=== PATIENT | male | born 1950 | race Caucasian/White ===

== ENCOUNTER 2017-01-05 08:09 | Outpatient (CLI) | payer MEDICARE, OTHER | END 2017-01-05 08:10 | disposition home or self-care (01) | DX: N40.1 Benign prostatic hyperplasia with lower urinary tract symptoms (principal); E78.5 Hyperlipidemia, unspecified; K21.9 Gastro-esophageal reflux disease without esophagitis; F41.9 Anxiety disorder, unspecified; M51.86 Other intervertebral disc disorders, lumbar region; Z12.5 Encounter for screening for malignant neoplasm of prostate | CPT/HCPCS: 36415; 80053; 80061; 85025; G0103 ==

== ENCOUNTER 2017-05-25 10:01 | Emergency (ER) | payer MEDICARE, OTHER ==
[2017-05-25 10:09] VITALS: BP 118/68
[2017-05-25] MEDS ORDERED: TETANUS/DIPHTHERIA/PERTUSSIS 0.5 ML SYRINGE IM ONE ×2 (10:33→10:39)
[2017-05-25] MEDS ORDERED: AMOX/CLAV 500 MG/125 MG TABLET PO STA (10:36)
[2017-05-25] MEDS ORDERED: BACITRACIN OINT TOP STA (10:52)
--- NOTE | 2017-05-25 10:55 | ED Physician Documentation ---
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 The dog bit his right middle finger. He is right-hand dominant. His last tetanus booster was 7 or 8 years ago. Review of Systems Constitutional: denies: Fever GI: denies: Vomiting Skin: reports: Bite / sting Musculoskeletal: reports: Extremity pain. denies: Extremity swelling Neurologic: denies: Focal weakness, Numbness PD PAST MEDICAL HISTORY - Past Medical History Past Medical History: Yes Cardiovascular: High cholesterol Respiratory: Sleep apnea, CPAP use, Other Neuro: None Endocrine/Autoimmune: None GI: None : Benign prostate hypertrophy HEENT: Other Psych: None Musculoskeletal: Osteoarthritis, Chronic back pain Derm: None - Past Surgical History Past Surgical History: Yes General: Cholecystectomy Ortho: ACL reconstruction - Present Medications Home Medications: Ambulatory Orders Medication Instructions Recorded Confirmed Aspirin [Aspir 81] 81 mg PO DAILY 05/05/13 05/25/17 Cyclobenzaprine [Flexeril] 10 mg PO TID PRN 05/05/13 05/25/17 Finasteride 5 mg PO DAILY 05/05/13 05/25/17 Simvastatin [Zocor] 20 mg PO QPM 05/05/13 05/25/17 Tamsulosin [Flomax] 0.4 mg PO ONCE 05/05/13 05/25/17 Zolpidem [Ambien] 10 mg PO HS 05/05/13 05/25/17 Celecoxib [CeleBREX] 200 mg PO DAILY 01/13/15 05/25/17 traMADol [Ultram] 60 mg PO TID 01/13/15 05/25/17 LORazepam [Ativan] 0.5 mg PO Q8H PRN #5 tablet 09/04/15 05/25/17 Amox/Clav 875/125 [Augmentin] 1 each PO Q12H #10 tablet 05/25/17 - Allergies Allergies/Adverse Reactions: Allergies Allergy/AdvReac Type Severity Reaction Status Date / Time tolmetin sodium * Allergy Severe Respiratory Verified 09/04/15 20:28 [From Tolectin] - Social History Does the pt smoke?: No Smoking Status: Never smoker Does the pt drink ETOH?: No Does the pt have substance abuse?: No - Immunizations Immunizations are current?: Yes - POLST Patient has POLST: Yes PD ED PE NORMAL - Vitals Vital signs reviewed: Yes (Normal) - General General: Alert and oriented X 3, Well developed/nourished - HEENT HEENT: Atraumatic - Respiratory Respiratory: No respiratory distress - Derm Derm: No rash - Extremities Extremities: Other (1 cm laceration on the volar aspect of the right middle finger just distal to the PIP joint. He has full flexion and extension of the DIP, PIP, and MCP joints, against resistance. Distal neurovascular is intact.) - Neuro Neuro: Alert and oriented X 3, No motor deficit, No sensory deficit Results - Vitals Vitals: Oxygen O2 Source Room air PD MEDICAL DECISION MAKING - ED course Complexity details: re-evaluated patient, considered differential, d/w patient, d/w PMD ED course: The patient's presentation is significant for dog bite to the right middle finger, just distal to the PIP joint on the volar aspect. Because of the risk of infection with dog bite, I did not suture the wound. I did anesthetize it and clean it thoroughly with normal saline. Antibiotic ointment and gauze dressing was applied. Augmentin 875 mg is administered orally, and tetanus booster was administered. The patient had recently been prescribed Bactrim for a sinus infection, and he had not yet filled the prescription. I contacted his primary provider to advise that I would be prescribing Augmentin, and advising the patient not to take Bactrim while taking Augmentin. He is being discharged with prescription for Augmentin for 5 days. I discussed with him the expected course of injury, antibiotic treatment and outpatient follow-up, as well as potentially worrisome signs or symptoms that should prompt reevaluation in the emergency department. Departure - Departure Disposition: 01 Home, Self Care Clinical Impression: Dog bite of finger Qualifiers: Encounter type: initial encounter Qualified Code(s): S61.259A - Open bite of unspecified finger without damage to nail, initial encounter Condition: Stable Instructions: ED Bite Dog Follow-Up: Akshat Cruz MD [Provider Admit Priv/Credential] - Prescriptions: Amox/Clav 875/125 [Augmentin] 1 each PO Q12H #10 tablet Comments: Take Augmentin twice daily as prescribed. Keep the wound clean, and apply antibiotic ointment daily. Follow up with your primary physician or return to the emergency department if you develop any sign of infection, or otherwise worsening symptoms. Discharge Date/Time: 05/25/17 11:04
[2017-05-25] MEDS ORDERED: BACITRACIN OINT TOP ONE (10:56)
== END 2017-05-25 11:04 | disposition home or self-care (01) ==
LOC: ED 10:01
DX: S61.252A Open bite of right middle finger without damage to nail, initial encounter (principal); W54.0XXA Bitten by dog, initial encounter; Y92.019 Unspecified place in single-family (private) house as the place of occurrence of the external cause; Z23 Encounter for immunization; E78.00 Pure hypercholesterolemia, unspecified; G47.30 Sleep apnea, unspecified; N40.0 Benign prostatic hyperplasia without lower urinary tract symptoms; M19.90 Unspecified osteoarthritis, unspecified site; Z79.82 Long term (current) use of aspirin
CPT/HCPCS: 90471; 90715; 99283; A9270

== ENCOUNTER 2017-11-01 07:47 | Outpatient (CLI) | payer MEDICARE, OTHER ==
[2017-11-01 13:22] LABS: ALBUMIN 4.1 g/dL (3.2-5.5); ALKALINE PHOSPHATASE 81 IU/L (42-121); ALT ALANINE AMINOTRANSFERASE 26 IU/L (10-60); AST ASPARTATE AMINOTRANSFERASE 28 IU/L (10-42); BILIRUBIN,DIRECT 0.1 mg/dL (0.1-0.5); BILIRUBIN,TOTAL 0.5 mg/dL (0.2-1.0); CHOL/HDL RATIO 3.7 (<5.0); CHOLESTEROL 146 mg/dL; CRP - C-REACTIVE PROTEIN 2.1 mg/dL (0-1.0); HDL CHOLESTEROL 39 mg/dL; LDL CHOLESTEROL,CALCULATED 90 mg/dL; LDL/HDL RATIO 2.3 (<3.6); VLDL CHOLESTEROL 17 mg/dL
== END 2017-11-01 07:48 | disposition home or self-care (01) ==
LOC: LAB.WCP 07:47
PROVIDERS: ATTEND Family Medicine
DX: E78.5 Hyperlipidemia, unspecified (principal); M79.1 Myalgia
CPT/HCPCS: 36415; 80061; 80076; 83721; 85651; 86140

== ENCOUNTER 2017-11-02 08:00 | Outpatient (CLI) | payer MEDICARE, OTHER | END 2017-11-02 08:01 | disposition home or self-care (01) | LOC: LAB.WCP 08:00 | PROVIDERS: ATTEND Family Medicine | DX: J20.8 Acute bronchitis due to other specified organisms (principal) | CPT/HCPCS: 87275; 87276 ==

== ENCOUNTER 2018-02-22 14:11 | Emergency (ER) | payer MEDICARE, OTHER ==
--- NOTE | 2018-02-22 16:05 | XRAY Report ---
Procedure Date: 02/22/2018 Accession Number: [id number] / [id number] Procedure: XR - Finger(s) RT CPT Code: FULL RESULT: EXAM: RIGHT SECOND DIGIT RADIOGRAPHY EXAM DATE: 02/22/2018 03:38 PM. CLINICAL HISTORY: Injury distal phalanx right index finger. COMPARISON: None. TECHNIQUE: 3 views. FINDINGS: Bones: No acute fractures or suspicious bone lesions. Joints: No subluxations. Soft Tissues: Unremarkable. IMPRESSION: No acute radiographic abnormalities. RADIA
--- NOTE | 2018-02-22 16:09 | ED Physician Documentation ---
PD HPI UPPER EXT INJURY - Stated complaint Stated Complaint: FINGER INJURY - Chief complaint Chief Complaint: General - History obtained from History obtained from: Patient - History of Present Illness Location: Right, Finger Type of injury: Crush Where injury occurred: Home Timing - onset: How many days ago (3) Worsened by: Moving, Palpating Associated symptoms: Swelling, Discolored Similar symptoms before: Has not had sx before - Additonal information Additional information: The patient is a 68-year-old right hand dominant male who crushed the tip of his right index finger between the tailgate and the box of his trailer 3 days ago. He presents now because of continued swelling, pain, and discoloration of his index finger. He denies any other injuries. Review of Systems Constitutional: denies: Fever Musculoskeletal: reports: Extremity pain (Right index finger.) Neurologic: denies: Focal weakness, Numbness PD PAST MEDICAL HISTORY - Past Medical History Past Medical History: Yes Cardiovascular: High cholesterol Respiratory: Sleep apnea, CPAP use, Other Endocrine/Autoimmune: None GI: None : Benign prostate hypertrophy HEENT: Other Psych: None Musculoskeletal: Osteoarthritis, Chronic back pain Derm: None - Past Surgical History Past Surgical History: Yes General: Cholecystectomy Ortho: ACL reconstruction - Present Medications Home Medications: Ambulatory Orders Medication Instructions Recorded Confirmed Aspirin [Aspir 81] 81 mg PO DAILY 05/05/13 05/25/17 Cyclobenzaprine [Flexeril] 10 mg PO TID PRN 05/05/13 05/25/17 Tamsulosin [Flomax] 0.4 mg PO ONCE 05/05/13 05/25/17 Zolpidem [Ambien] 10 mg PO HS 05/05/13 05/25/17 Celecoxib [CeleBREX] 200 mg PO DAILY 01/13/15 05/25/17 traMADol [Ultram] 60 mg PO TID 01/13/15 05/25/17 LORazepam [Ativan] 0.5 mg PO Q8H PRN #5 tablet 09/04/15 05/25/17 Atorvastatin [Lipitor] 02/22/18 - Allergies Allergies/Adverse Reactions: Allergies Allergy/AdvReac Type Severity Reaction Status Date / Time tolmetin sodium * Allergy Severe Respiratory Verified 02/22/18 14:33 [From Tolectin] - Social History Does the pt smoke?: No Smoking Status: Never smoker Does the pt drink ETOH?: No Does the pt have substance abuse?: No - Immunizations Immunizations are current?: Yes Immunizations: TDAP current <10years - POLST Patient has POLST: Yes PD ED PE NORMAL - Vitals Vital signs reviewed: Yes (Borderline systolic hypertension.) - General General: Alert and oriented X 3, Well developed/nourished - HEENT HEENT: Atraumatic - Respiratory Respiratory: No respiratory distress - Derm Derm: No rash - Extremities Extremities: Other (There is swelling of the distal phalanx of the right index finger, with some ungual hematoma. There is no break in the integument, and distal neurovascular is intact.) - Neuro Neuro: Alert and oriented X 3, No motor deficit, No sensory deficit Results - Vitals Vitals: Oxygen O2 Source Room air - Rads (name of study) Right index finger Radiology: Prelim report reviewed, EMP read contemporaneously, See rad report ( No acute radiographic abnormality.) Procedures - General procedure General procedure: Trephination of the fingernail on the right index finger, using hand-held cautery. PD MEDICAL DECISION MAKING - ED course Complexity details: reviewed results, considered differential, d/w patient ED course: The patient's presentation is consistent with crush injury to the right index finger, with subungual hematoma. There is no evidence of fracture on x-ray examination. Treatment in the emergency department included trephination of the fingernail, with subsequent drainage of the subungual hematoma. I discussed with him the expected course of injury, symptomatic treatment and outpatient follow-up, as well as potentially worrisome signs or symptoms that should prompt reevaluation in the emergency department. - Sepsis Event Vital Signs: Oxygen O2 Source Room air Departure - Departure Disposition: 01 Home, Self Care Clinical Impression: Crush injury to finger Qualifiers: Encounter type: initial encounter Qualified Code(s): S67.10XA - Crushing injury of unspecified finger(s), initial encounter Subungual hematoma of finger of right hand Qualifiers: Encounter type: initial encounter Qualified Code(s): S60.10XA - Contusion of unspecified finger with damage to nail, initial encounter Condition: Stable Instructions: ED Hematoma Subungual Follow-Up: Akshat Cruz MD [Provider Admit Priv/Credential] - Comments: Keep your right hand elevated as much of the time as possible. You can use ibuprofen, up to 800 mg 3 times daily if needed for pain or discomfort. Follow up with your primary physician, or return to the emergency department if you develop increasing pain or swelling, or otherwise worsening times. Discharge Date/Time: 02/22/18 16:20
[2018-02-22 16:22] VITALS: BP 130/81
== END 2018-02-22 16:20 | disposition home or self-care (01) ==
LOC: ED 14:11
DX: S67.190A Crushing injury of right index finger, initial encounter (principal); S60.121A Contusion of right index finger with damage to nail, initial encounter; W23.0XXA Caught, crushed, jammed, or pinched between moving objects, initial encounter; Y92.007 Garden or yard of unspecified non-institutional (private) residence as the place of occurrence of the external cause; E78.00 Pure hypercholesterolemia, unspecified; G47.30 Sleep apnea, unspecified; N40.0 Benign prostatic hyperplasia without lower urinary tract symptoms; M19.90 Unspecified osteoarthritis, unspecified site; Z79.82 Long term (current) use of aspirin
CPT/HCPCS: 11740; 73140; 99283

== ENCOUNTER 2018-05-29 07:40 | Outpatient (CLI) | payer MEDICARE, OTHER ==
[2018-05-29 14:55] LABS: ALBUMIN 4.1 g/dL (3.2-5.5); ALBUMIN/GLOBULIN RATIO 1.5 (1.0-2.2); ALKALINE PHOSPHATASE 92 IU/L (42-121); ALT ALANINE AMINOTRANSFERASE 22 IU/L (10-60); AST ASPARTATE AMINOTRANSFERASE 23 IU/L (10-42); BILIRUBIN,TOTAL 0.4 mg/dL (0.2-1.0); BUN - BLOOD UREA NITROGEN 23 mg/dL (6-20); CALCIUM 8.8 mg/dL (8.5-10.3); CARBON DIOXIDE - CO2 30 mmol/L (21-32); CHLORIDE 100 mmol/L (101-111); CHOL/HDL RATIO 3.8 (<5.0); CHOLESTEROL 145 mg/dL; CREATININE 0.9 mg/dL (0.6-1.2); GFR - MDRD 83 (>89); GLUCOSE 105 mg/dL (70-100); HDL CHOLESTEROL 38 mg/dL; LDL CHOLESTEROL,CALCULATED 79 mg/dL; LDL/HDL RATIO 2.1 (<3.6); SODIUM 137 mmol/L (135-145); TOTAL PROTEIN 6.8 g/dL (6.7-8.2); VLDL CHOLESTEROL 28 mg/dL
== END 2018-05-29 07:41 | disposition home or self-care (01) ==
LOC: LAB.WCP 07:40
PROVIDERS: ATTEND Family Medicine
DX: E78.5 Hyperlipidemia, unspecified (principal); Z12.5 Encounter for screening for malignant neoplasm of prostate; R10.11 Right upper quadrant pain
CPT/HCPCS: 36415; 80053; 80061; G0103; 83721; 84153

== ENCOUNTER 2019-02-17 12:50 | Emergency (ER) | payer MEDICARE, OTHER ==
--- NOTE | 2019-02-17 14:15 | ED Physician Documentation ---
PD HPI SKIN - Stated complaint Stated Complaint: LUMP ON BACK - Chief complaint Chief Complaint: Wound - History obtained from History obtained from: Patient - History of Present Illness Timing - onset: How many days ago (he has had cyst on back for awhile, and has referral to Surgery to have it excised, but has gotten swollen, red, tender, with some small blisters on surface over the past several days abruptly.) Timing - duration: Days Timing - details: Abrupt onset, Still present Location: Back (lower to right of midline) Quality / character: Painful, Discolored, Vesicular, Swelling Review of Systems Constitutional: denies: Fever, Chills, Myalgias GI: denies: Nausea, Vomiting Skin: reports: Lesions Neurologic: denies: Focal weakness, Numbness PD PAST MEDICAL HISTORY - Past Medical History Cardiovascular: High cholesterol Respiratory: Sleep apnea, CPAP use, Other Endocrine/Autoimmune: None GI: None : Benign prostate hypertrophy HEENT: Other Psych: None Musculoskeletal: Osteoarthritis, Chronic back pain Derm: None - Past Surgical History Past Surgical History: Yes General: Cholecystectomy Ortho: ACL reconstruction - Present Medications Home Medications: Ambulatory Orders Medication Instructions Recorded Confirmed Aspirin [Aspir 81] 81 mg PO DAILY 05/05/13 05/25/17 Cyclobenzaprine [Flexeril] 10 mg PO TID PRN 05/05/13 05/25/17 Tamsulosin [Flomax] 0.4 mg PO ONCE 05/05/13 05/25/17 Zolpidem [Ambien] 10 mg PO HS 05/05/13 05/25/17 Celecoxib [CeleBREX] 200 mg PO DAILY 01/13/15 05/25/17 traMADol [Ultram] 60 mg PO TID 01/13/15 05/25/17 LORazepam [Ativan] 0.5 mg PO Q8H PRN #5 tablet 09/04/15 05/25/17 Atorvastatin [Lipitor] 02/22/18 Doxycycline Hyclate 100 mg PO BID #14 capsule 02/17/19 - Allergies Allergies/Adverse Reactions: Allergies Allergy/AdvReac Type Severity Reaction Status Date / Time tolmetin sodium * Allergy Severe Respiratory Verified 02/17/19 12:56 [From Tolectin] - Social History Does the pt smoke?: No Smoking Status: Never smoker Does the pt drink ETOH?: No Does the pt have substance abuse?: No - Immunizations Immunizations are current?: Yes Immunizations: TDAP current <10years - POLST Patient has POLST: Yes PD ED PE NORMAL - Vitals Vital signs reviewed: Yes - General General: Alert and oriented X 3, No acute distress, Well developed/nourished - Back Back: No spinal TTP, Other (cyst right of midline in upper lumbar area. It is freely moveable from underlying muscle. U/S shows it is in the subcut layer and does not appear to extend deeper. Rounded red tender lump with some fluctuance, and superficial erosion/bistering c/w infected abscess. ) - Derm Derm: Normal color, Warm and dry Results - Vitals Vitals: Oxygen O2 Source Room air Procedures - Abscess I&D (location) lower back skin Preparation: Confirmed with ultrasound, Chlorhexadine, Lidocaine 1%, With epi Incision: Incised with scalpel, Purulent drainage, Irrigated. No: Packed, Culture obtained Other: Pt tolerated well, Dressing applied, Antibiotic prescribed PD MEDICAL DECISION MAKING - ED course Complexity details: considered differential, d/w patient Departure - Departure Disposition: 01 Home, Self Care Clinical Impression: Infected sebaceous cyst of skin Condition: Stable Record reviewed to determine appropriate education?: Yes Instructions: ED Abscess IandD Follow-Up: Akshat Cruz MD [Primary Care Provider] - Emanuel Nolen MD [Provider Admit Priv/Credential] - Prescriptions: Doxycycline Hyclate 100 mg PO BID #14 capsule Comments: Warm moist towels to the area periodically or even bath soaks are good to help promote further drainage from the infected cyst. Doxycycline antibiotic as directed. Use Tylenol ibuprofen or naproxen as needed for pains. Follow-up with Dr. Jones as planned in early September for more definitive removal of the underlying cyst. The current treatments will reduce the infection part and the cyst can get excised later when the infection is cleared. Discharge Date/Time: 02/17/19 15:19
[2019-02-17] MEDS ORDERED: IBUPROFEN 600 MG TABLET PO STA (15:02)
[2019-02-17] MEDS ORDERED: DOXYCYCLINE 100 MG TABLET PO STA (15:02)
[2019-02-17 15:18] VITALS: BP 149/82
== END 2019-02-17 15:19 | disposition home or self-care (01) ==
LOC: ED 12:50
DX: L72.3 Sebaceous cyst (principal); L02.212 Cutaneous abscess of back [any part, except buttock and flank]; Z79.82 Long term (current) use of aspirin
CPT/HCPCS: 10060; 99283; A9270

== ENCOUNTER 2019-02-27 17:53 | Emergency (ER) | payer MEDICARE, OTHER ==
[2019-02-27 18:00] VITALS: BP 142/97
[2019-02-27] MEDS ORDERED: predniSONE 20 MG TABLET PO STA (18:17)
--- NOTE | 2019-02-27 18:23 | ED Physician Documentation ---
History of Present Illness - Stated complaint Stated Complaint: RT LEG RED/BURN/SWELL - Chief complaint Chief Complaint: Ext Problem - History obtained from History obtained from: Patient - History of Present Illness Timing: How many weeks ago (1) Pain level max: 4 Pain level now: 3 - Additonal information Additional information: Right lower extremity redness and stinging for the past week. Located on the anterior aspect of the jarvis. No distal swelling. States it occurred while he was walking a horse. Nothing makes it better. Worse with palpation. No fevers. Review of Systems Constitutional: denies: Fever, Chills Musculoskeletal: denies: Neck pain, Back pain Neurologic: denies: Headache PD PAST MEDICAL HISTORY - Past Medical History Cardiovascular: High cholesterol Respiratory: Sleep apnea, CPAP use, Other Endocrine/Autoimmune: None GI: None : Benign prostate hypertrophy HEENT: Other Psych: None Musculoskeletal: Osteoarthritis, Chronic back pain Derm: None - Past Surgical History Past Surgical History: Yes General: Cholecystectomy Ortho: ACL reconstruction - Present Medications Home Medications: Ambulatory Orders Medication Instructions Recorded Confirmed Aspirin [Aspir 81] 81 mg PO DAILY 05/05/13 05/25/17 Cyclobenzaprine [Flexeril] 10 mg PO TID PRN 05/05/13 05/25/17 Tamsulosin [Flomax] 0.4 mg PO ONCE 05/05/13 05/25/17 Zolpidem [Ambien] 10 mg PO HS 05/05/13 05/25/17 Celecoxib [CeleBREX] 200 mg PO DAILY 01/13/15 05/25/17 traMADol [Ultram] 60 mg PO TID 01/13/15 05/25/17 LORazepam [Ativan] 0.5 mg PO Q8H PRN #5 tablet 09/04/15 05/25/17 Atorvastatin [Lipitor] 02/22/18 Doxycycline Hyclate 100 mg PO BID #14 capsule 02/17/19 Cephalexin [Keflex] 500 mg PO Q6H #28 capsule 02/27/19 predniSONE [Prednisone] 40 mg PO DAILY #10 tablet 02/27/19 - Allergies Allergies/Adverse Reactions: Allergies Allergy/AdvReac Type Severity Reaction Status Date / Time tolmetin sodium * Allergy Severe Respiratory Verified 02/27/19 18:00 [From Tolectin] - Social History Does the pt smoke?: No Smoking Status: Never smoker Does the pt drink ETOH?: No Does the pt have substance abuse?: No - Immunizations Immunizations are current?: Yes Immunizations: TDAP current <10years - POLST Patient has POLST: Yes PD ED PE NORMAL - Vitals Vital signs reviewed: Yes - General General: Alert and oriented X 3, No acute distress - HEENT HEENT: Moist mucous membranes - Neck Neck: Supple, no meningeal sign - Extremities Extremities: Other (R anterior jarvis - mild erythema. no induration. no fluctance) - Neuro Neuro: Alert and oriented X 3 - Psych Psych: Normal mood, Normal affect Results - Vitals Vitals: Vital Signs - 24 hr 02/27/19 17:57 Temperature 36.8 C Heart Rate 74 Respiratory 17 Rate Blood Pressure 142/97 H O2 Saturation 96 Oxygen O2 Source Room air PD MEDICAL DECISION MAKING - ED course Complexity details: considered differential, d/w patient ED course: 69-year-old male with cellulitis versus allergic reaction to the anterior right jarvis. Will place on steroids and antibiotics. He is well-appearing, nontoxic. Afebrile. No evidence of DVT. No evidence of abscess. No evidence of fracture. Patient counseled regarding signs and symptoms for which I believe and urgent re-evaluation would be necessary. Patient with good understanding of and agreement to plan and is comfortable going home at this time This document was made in part using voice recognition software. While efforts are made to proofread this document, sound alike and grammatical errors may occur. Departure - Departure Disposition: 01 Home, Self Care Clinical Impression: Allergic reaction Qualifiers: Encounter type: initial encounter Qualified Code(s): T78.40XA - Allergy, unspecified, initial encounter Cellulitis Qualifiers: Site of cellulitis: extremity Site of cellulitis of extremity: lower extremity Laterality: right Qualified Code(s): L03.115 - Cellulitis of right lower limb Condition: Good Instructions: ED Allergic Reaction Local Other, ED Infec Skin Cellulitis Follow-Up: Akshat Cruz MD [Primary Care Provider] - Within 1 week Prescriptions: Cephalexin [Keflex] 500 mg PO Q6H #28 capsule predniSONE [Prednisone] 40 mg PO DAILY #10 tablet Comments: Return if you worsen. Start the antibiotics tomorrow if you are not improved. This document was made in part using voice recognition software. While efforts are made to proofread this document, sound alike and grammatical errors may occur. Discharge Date/Time: 02/27/19 18:40
== END 2019-02-27 18:40 | disposition home or self-care (01) ==
LOC: ED 17:53
DX: T78.40XA Allergy, unspecified, initial encounter (principal); L03.115 Cellulitis of right lower limb
CPT/HCPCS: 99283; J7512

== ENCOUNTER 2019-03-04 13:00 | Outpatient (CLI) | payer MEDICARE, OTHER | END 2019-03-04 23:59 | disposition home or self-care (01) | LOC: LAB.R 13:00 | PROVIDERS: ATTEND Surgery | DX: R22.2 Localized swelling, mass and lump, trunk (principal) | CPT/HCPCS: 87070; 87205 ==

== ENCOUNTER 2019-08-22 08:00 | Outpatient (CLI) | payer MEDICARE, OTHER ==
[2019-08-22 18:49] LABS: BASOPHILS % (AUTO) 0.5 %; EOSINOPHILS # (AUTO) 0.2 10^3/uL (0.0-0.7); EOSINOPHILS % (AUTO) 2.5 %; HGB - HEMOGLOBIN 15.2 g/dL (14.0-18.0); LYMPHOCYTES # (AUTO) 1.3 10^3/uL (1.5-3.5); LYMPHOCYTES % (AUTO) 15.9 %; MEAN CORPUSCULAR HEMOGLOBIN 30.1 pg (27.0-31.0); MEAN CORPUSCULAR HGB CONC 32.9 g/dL (32.0-36.0); MEAN CORPUSCULAR VOLUME 91.5 fL (80.0-94.0); MEAN PLATELET VOLUME 9.8 fL (7.4-11.4); MONOCYTES # (AUTO) 0.7 10^3/uL (0.0-1.0); MONOCYTES % (AUTO) 8.3 %; NEUTROPHILS # (AUTO) 5.8 10^3/uL (1.5-6.6); NEUTROPHILS % (AUTO) 72.3 %; PLT - PLATELET COUNT 218 10^3/uL (130-450); RED BLOOD COUNT 5.05 10^6/uL (4.70-6.10)
[2019-08-22 19:20] LABS: ALBUMIN/GLOBULIN RATIO 1.4 (1.0-2.2); BILIRUBIN,TOTAL 0.4 mg/dL (0.2-1.0); CALCIUM 8.8 mg/dL (8.5-10.3); CREATININE 0.9 mg/dL (0.6-1.2); TOTAL PROTEIN 6.9 g/dL (6.7-8.2)
== END 2019-08-22 23:59 | disposition home or self-care (01) ==
LOC: LAB.WCP 08:00
PROVIDERS: ATTEND Family Medicine
DX: R10.9 Unspecified abdominal pain (principal)
CPT/HCPCS: 36415; 80053; 82150; 83690; 85025

== ENCOUNTER 2019-08-24 08:39 | Outpatient (CLI) | payer MEDICARE, OTHER ==
[2019-08-24] MEDS ORDERED: IOVERSOL 320 50 ML VIAL ONE (08:44)
[2019-08-24] MEDS ORDERED: IOVERSOL 320 100 ML VIAL IVP ONE ×2 (08:44→10:17)
[2019-08-24] MEDS ORDERED: IOVERSOL 320 50 ML VIAL PO ONE (10:17)
--- NOTE | 2019-08-26 01:20 | CT Report ---
Reason: ABD PAIN Procedure Date: 08/24/2019 Accession Number: [id number] / [id number] Procedure: CT - Abdomen/Pelvis W CPT Code: Final Report FULL RESULT: EXAM: CT ABDOMEN AND PELVIS EXAM DATE: 08/24/2019 10:14 AM. CLINICAL HISTORY: Abdominal pain. COMPARISONS: None. TECHNIQUE: Routine helical CT imaging was performed through the abdomen and pelvis. IV contrast: OPTI 320 100 mL. Enteric contrast: Present. Reconstructions: Coronal and sagittal. In accordance with CT protocol optimization, one or more of the following dose reduction techniques were utilized for this exam: automated exposure control, adjustment of mA and/or KV based on patient size, or use of iterative reconstructive technique. FINDINGS: ABDOMEN: Liver: Multiple small low-density lesions within the liver, difficult to fully characterize. Some of the larger lesions are likely cysts. Stomach/Distal Esophagus: No significant abnormality. Gallbladder: No significant abnormality. Bile Ducts: No significant abnormality. Pancreas: No significant abnormality. Spleen: No significant abnormality. Kidneys: There is a tiny cyst within the right mid to upper kidney. No suspicious solid appearing lesion. No hydronephrosis. Nonspecific trace amount of perinephric fluid bilaterally, probably senescent change. Adrenals: No significant abnormality. Bowel: No obstruction. Moderate fecal residual. Appendix: Normal. Lymph Nodes: No pathologically enlarged nodes. Vasculature: Normal caliber aorta. Fluid: No significant free fluid. Abdominal Wall: No significant abnormality. Other: No significant abnormality. PELVIS: Streak artifact from the pelvic hardware obscures detailed assessment of the pelvis. Prostate and Seminal Vesicles: No significant abnormality. Bladder: No significant abnormality. Lymph Nodes: No pathologically enlarged nodes. Fluid: No significant free fluid. Other: There is a small fat-containing left inguinal hernia noted. BONES: Prior pelvic ring disruption with fixation of the SI joints bilaterally with a long cannulated screw. There is also side plate and screw fixation of the symphysis pubis. Streak artifact resulting from these prostheses as well as the left hip prosthesis obscure detailed assessment of the pelvis. Multilevel degenerative change within the spine. No definite suspicious bone lesions demonstrated. LOWER CHEST: No significant consolidation or effusion. IMPRESSION: No acute abdominal or pelvic abnormality. Moderate amount of retained colonic fecal matter, may represent constipation in the appropriate setting. RADIA
== END 2019-08-24 08:40 | disposition home or self-care (01) ==
LOC: DI 08:39
PROVIDERS: ATTEND Family Medicine
DX: R10.9 Unspecified abdominal pain (principal)
CPT/HCPCS: 74177; Q9967

== ENCOUNTER 2019-08-29 08:16 | Outpatient (CLI) | payer MEDICARE, OTHER ==
[2019-08-29 12:03] LABS: BASOPHILS # (AUTO) 0.1 10^3/uL (0.0-0.1); BASOPHILS % (AUTO) 0.8 %; EOSINOPHILS # (AUTO) 0.2 10^3/uL (0.0-0.7); EOSINOPHILS % (AUTO) 3.7 %; HGB - HEMOGLOBIN 16.3 g/dL (14.0-18.0); LYMPHOCYTES # (AUTO) 1.2 10^3/uL (1.5-3.5); MEAN CORPUSCULAR HEMOGLOBIN 29.9 pg (27.0-31.0); MEAN CORPUSCULAR HGB CONC 33.2 g/dL (32.0-36.0); MEAN CORPUSCULAR VOLUME 89.9 fL (80.0-94.0); MEAN PLATELET VOLUME 9.7 fL (7.4-11.4); MONOCYTES # (AUTO) 0.7 10^3/uL (0.0-1.0); MONOCYTES % (AUTO) 11.5 %; NEUTROPHILS # (AUTO) 3.8 10^3/uL (1.5-6.6); NEUTROPHILS % (AUTO) 63.7 %; PLT - PLATELET COUNT 218 10^3/uL (130-450); RED BLOOD COUNT 5.46 10^6/uL (4.70-6.10); RED CELL DISTRIBUTION WIDTH 11.9 % (12.0-15.0)
[2019-08-29 12:19] LABS: ALBUMIN 4.2 g/dL (3.2-5.5); ALBUMIN/GLOBULIN RATIO 1.3 (1.0-2.2); ALKALINE PHOSPHATASE 101 IU/L (42-121); ALT ALANINE AMINOTRANSFERASE 22 IU/L (10-60); AST ASPARTATE AMINOTRANSFERASE 21 IU/L (10-42); BILIRUBIN,TOTAL 0.7 mg/dL (0.2-1.0); BUN - BLOOD UREA NITROGEN 22 mg/dL (6-20); CARBON DIOXIDE - CO2 30 mmol/L (21-32); CHLORIDE 100 mmol/L (101-111); CHOL/HDL RATIO 3.3 (<5.0); CHOLESTEROL 197 mg/dL; CREATININE 0.9 mg/dL (0.6-1.2); GFR - MDRD 83 (>89); GLUCOSE 96 mg/dL (70-100); HDL CHOLESTEROL 59 mg/dL; LDL CHOLESTEROL,CALCULATED 115 mg/dL; LDL/HDL RATIO 1.9 (<3.6); SODIUM 140 mmol/L (135-145); TOTAL PROTEIN 7.4 g/dL (6.7-8.2); VLDL CHOLESTEROL 23 mg/dL
== END 2019-08-29 23:59 | disposition home or self-care (01) ==
LOC: LAB.WCP 08:16
PROVIDERS: ATTEND Family Medicine
DX: J44.9 Chronic obstructive pulmonary disease, unspecified (principal); M79.7 Fibromyalgia; E78.5 Hyperlipidemia, unspecified; K21.9 Gastro-esophageal reflux disease without esophagitis; Z12.5 Encounter for screening for malignant neoplasm of prostate
CPT/HCPCS: 36415; 80053; 80061; 84443; 85025; G0103; 83721; 84153

== ENCOUNTER 2021-05-05 11:22 | Outpatient (CLI) | payer MEDICARE, OTHER ==
--- NOTE | 2021-05-05 17:06 | XRAY Report ---
PROCEDURE: Ribs w/PA Chest RT INDICATIONS: PATIENT INJURED R RIBS IN FALL FROM HORSE TECHNIQUE: 3 views of the right ribs were acquired, along with a single view chest. COMPARISON: Prior chest plain films reviewed. FINDINGS: Surgical changes and devices: None. Bones and chest wall: There is at least one right-sided acute mid chest rib fracture, only slightly d isplaced. Mild underlying pleural thickening is associated. A pneumothorax is not seen. No dislocatio ns. No suspicious bony lesions. Overlying soft tissues appear unremarkable. Lungs and pleura: No pleural effusions or pneumothorax. Lungs appear clear. Mediastinum: Mediastinal contours appear normal. Heart size is normal. IMPRESSION: Reduced inspiratory volume, no pneumothorax. Definite acute single visualized right mid chest rib fra cture, with underlying mild pleural thickening as a result focally. Reviewed by: Heladio Vazquez MD on 05/05/2021 5:04 PM PDT Approved by: Heladio Vazquez MD on 05/05/2021 5:04 PM PDT Station ID: [id number]
--- NOTE | 2021-05-05 17:20 | XRAY Report ---
PROCEDURE: Shoulder 2 View RT INDICATIONS: PATIENT INJURED IN FALL FROM HORSE TECHNIQUE: 2 views of the shoulder were acquired. COMPARISON: None. FINDINGS: Bones: No fractures or dislocations. No suspicious bony lesions. Visualized ribs appear intact. M ild acromioclavicular and glenohumeral joint space narrowing with periarticular osteophyte formation. Soft tissues: No suspicious soft tissue calcifications. IMPRESSION: Mild acromioclavicular and glenohumeral joint degeneration. Reviewed by: TRACI High on 05/05/2021 5:19 PM PDT Approved by: Vincent Ferrer MD on 05/05/2021 5:19 PM PDT Station ID: [id number]
== END 2021-05-05 23:59 | disposition home or self-care (01) ==
LOC: DI.N 11:22
PROVIDERS: ATTEND Nurse Practitioner
DX: S22.31XA Fracture of one rib, right side, initial encounter for closed fracture (principal); M19.011 Primary osteoarthritis, right shoulder

== ENCOUNTER 2021-07-22 08:00 | Outpatient (CLI) | payer MEDICARE, OTHER ==
[2021-07-22 12:31] LABS: BASOPHILS % (AUTO) 0.6 %; EOSINOPHILS # (AUTO) 0.3 10^3/uL (0.0-0.7); EOSINOPHILS % (AUTO) 4.8 %; HCT - HEMATOCRIT 46.8 % (42.0-52.0); HGB - HEMOGLOBIN 15.5 g/dL (14.0-18.0); LYMPHOCYTES # (AUTO) 1.3 10^3/uL (1.5-3.5); LYMPHOCYTES % (AUTO) 24.1 %; MEAN CORPUSCULAR HGB CONC 33.1 g/dL (32.0-36.0); MEAN CORPUSCULAR VOLUME 90.5 fL (80.0-94.0); MEAN PLATELET VOLUME 9.3 fL (7.4-11.4); MONOCYTES # (AUTO) 0.6 10^3/uL (0.0-1.0); MONOCYTES % (AUTO) 11.1 %; NEUTROPHILS # (AUTO) 3.2 10^3/uL (1.5-6.6); NEUTROPHILS % (AUTO) 59.2 %; PLT - PLATELET COUNT 217 10^3/uL (130-450); RED BLOOD COUNT 5.17 10^6/uL (4.70-6.10); RED CELL DISTRIBUTION WIDTH 11.9 % (12.0-15.0); WHITE BLOOD COUNT 5.4 x10^3/uL (4.8-10.8)
[2021-07-22 12:49] LABS: ALBUMIN 4.4 g/dL (3.2-5.5); ALBUMIN/GLOBULIN RATIO 1.6 (1.0-2.2); ALKALINE PHOSPHATASE 96 IU/L (42-121); ALT ALANINE AMINOTRANSFERASE 22 IU/L (10-60); AST ASPARTATE AMINOTRANSFERASE 23 IU/L (10-42); BILIRUBIN,TOTAL 0.9 mg/dL (0.2-1.0); BUN - BLOOD UREA NITROGEN 18 mg/dL (6-20); CALCIUM 8.8 mg/dL (8.5-10.3); CARBON DIOXIDE - CO2 32 mmol/L (21-32); CHLORIDE 97 mmol/L (101-111); CHOL/HDL RATIO 3.8 (<5.0); CHOLESTEROL 180 mg/dL; CREATININE 0.9 mg/dL (0.6-1.2); GFR - MDRD 83 (>89); GLUCOSE 106 mg/dL (70-100); HDL CHOLESTEROL 47 mg/dL; LDL CHOLESTEROL,CALCULATED 106 mg/dL; LDL/HDL RATIO 2.3 (<3.6); POTASSIUM 4.2 mmol/L (3.5-5.0); SODIUM 135 mmol/L (135-145); TOTAL PROTEIN 7.1 g/dL (6.7-8.2); TRIGLYCERIDES 136 mg/dL; VLDL CHOLESTEROL 27 mg/dL
== END 2021-07-22 23:59 | disposition home or self-care (01) ==
LOC: LAB.WCP 08:00
PROVIDERS: ATTEND Family Medicine
DX: E78.5 Hyperlipidemia, unspecified (principal); Z12.5 Encounter for screening for malignant neoplasm of prostate; K21.9 Gastro-esophageal reflux disease without esophagitis
CPT/HCPCS: 36415; 80053; 80061; 85025; G0103; 83721; 84153

== ENCOUNTER 2021-10-27 08:00 | Outpatient (CLI) | payer MEDICARE, OTHER ==
--- NOTE | 2021-10-27 14:18 | XRAY Report ---
PROCEDURE: Chest 2 View X-Ray INDICATIONS: R SIDED CHEST PX TECHNIQUE: 2 view(s) of the chest. COMPARISON: 05/05/2021 chest x-ray FINDINGS: Surgical changes and devices: None. Lungs and pleura: No pleural effusions or pneumothorax. Lungs are clear. Mediastinum: Mediastinal contours are normal. Heart size is normal. Bones and chest wall: No suspicious bony abnormalities. Soft tissues appear unremarkable. IMPRESSION: No acute process. Reviewed by: Dana Magana MD on 10/27/2021 2:17 PM PST Approved by: Dana Magana MD on 10/27/2021 2:17 PM PST Station ID: [id number]
== END 2021-10-27 23:59 | disposition home or self-care (01) ==
LOC: DI.N 08:00
PROVIDERS: ATTEND Family Medicine
DX: R07.89 Other chest pain (principal)

== ENCOUNTER 2022-01-03 07:47 | Outpatient (CLI) | payer MEDICARE, OTHER ==
[2022-01-03 13:11] LABS: ALBUMIN 4.1 g/dL (3.2-5.5); ALBUMIN/GLOBULIN RATIO 1.4 (1.0-2.2); ALKALINE PHOSPHATASE 78 IU/L (42-121); ALT ALANINE AMINOTRANSFERASE 20 IU/L (10-60); AST ASPARTATE AMINOTRANSFERASE 23 IU/L (10-42); BILIRUBIN,TOTAL 0.6 mg/dL (0.2-1.0); BUN - BLOOD UREA NITROGEN 16 mg/dL (6-20); CARBON DIOXIDE - CO2 30 mmol/L (21-32); CHLORIDE 101 mmol/L (101-111); CHOL/HDL RATIO 3.9 (<5.0); CHOLESTEROL 173 mg/dL; CREATININE 0.9 mg/dL (0.6-1.2); GFR - MDRD 83 (>89); GLUCOSE 100 mg/dL (70-100); HDL CHOLESTEROL 44 mg/dL; LDL CHOLESTEROL,CALCULATED 89 mg/dL; POTASSIUM 4.2 mmol/L (3.5-5.0); SODIUM 140 mmol/L (135-145); TOTAL PROTEIN 7.1 g/dL (6.7-8.2); TRIGLYCERIDES 198 mg/dL; VLDL CHOLESTEROL 40 mg/dL
[2022-01-03 13:34] LABS: ESTIMATED AVERAGE GLUCOSE 120 mg/dL (70-100); HEMOGLOBIN A1c% 5.8 % (4.27-6.07)
== END 2022-01-03 07:48 | disposition home or self-care (01) ==
LOC: LAB.N 07:47
PROVIDERS: ATTEND Family Medicine
DX: E78.5 Hyperlipidemia, unspecified (principal); R73.01 Impaired fasting glucose
CPT/HCPCS: 36415; 80053; 80061; 83036; 83721

== ENCOUNTER 2022-05-25 09:21 | Outpatient (CLI) | payer MEDICARE, OTHER ==
[2022-05-25 12:27] LABS: BASOPHILS # (AUTO) 0.1 10^3/uL (0.0-0.1); BASOPHILS % (AUTO) 1.1 %; EOSINOPHILS # (AUTO) 0.2 10^3/uL (0.0-0.7); EOSINOPHILS % (AUTO) 4.3 %; HCT - HEMATOCRIT 46.3 % (42.0-52.0); HGB - HEMOGLOBIN 15.7 g/dL (14.0-18.0); LYMPHOCYTES # (AUTO) 1.1 10^3/uL (1.5-3.5); LYMPHOCYTES % (AUTO) 23.7 %; MEAN CORPUSCULAR HEMOGLOBIN 30.4 pg (27.0-31.0); MEAN CORPUSCULAR HGB CONC 33.9 g/dL (32.0-36.0); MEAN CORPUSCULAR VOLUME 89.6 fL (80.0-94.0); MONOCYTES # (AUTO) 0.6 10^3/uL (0.0-1.0); NEUTROPHILS # (AUTO) 2.6 10^3/uL (1.5-6.6); NEUTROPHILS % (AUTO) 57.5 %; PLT - PLATELET COUNT 202 10^3/uL (130-450); RED BLOOD COUNT 5.17 10^6/uL (4.70-6.10); RED CELL DISTRIBUTION WIDTH 12.1 % (12.0-15.0); WHITE BLOOD COUNT 4.6 x10^3/uL (4.8-10.8)
[2022-05-25 13:09] LABS: ALBUMIN 4.4 g/dL (3.2-5.5); ALBUMIN/GLOBULIN RATIO 1.5 (1.0-2.2); ALKALINE PHOSPHATASE 72 IU/L (42-121); ALT ALANINE AMINOTRANSFERASE 23 IU/L (10-60); AST ASPARTATE AMINOTRANSFERASE 23 IU/L (10-42); BILIRUBIN,TOTAL 0.8 mg/dL (0.2-1.0); BUN - BLOOD UREA NITROGEN 22 mg/dL (6-20); CALCIUM 9.2 mg/dL (8.5-10.3); CARBON DIOXIDE - CO2 32 mmol/L (21-32); CHLORIDE 101 mmol/L (101-111); CHOL/HDL RATIO 4.2 (<5.0); CHOLESTEROL 195 mg/dL; CREATININE 0.9 mg/dL (0.6-1.2); GFR - MDRD 82 (>89); GLUCOSE 102 mg/dL (70-100); HDL CHOLESTEROL 46 mg/dL; LDL CHOLESTEROL,CALCULATED 121 mg/dL; LDL/HDL RATIO 2.6 (<3.6); POTASSIUM 4.6 mmol/L (3.5-5.0); SODIUM 140 mmol/L (135-145); TOTAL PROTEIN 7.3 g/dL (6.7-8.2); TRIGLYCERIDES 142 mg/dL; VLDL CHOLESTEROL 28 mg/dL
== END 2022-05-25 09:22 | disposition home or self-care (01) ==
LOC: LAB.N 09:21
PROVIDERS: ATTEND Nurse Practitioner Family
DX: E78.5 Hyperlipidemia, unspecified (principal); K21.9 Gastro-esophageal reflux disease without esophagitis
CPT/HCPCS: 36415; 80053; 80061; 83721; 84153; 85025

== ENCOUNTER 2023-05-16 07:25 | Outpatient (CLI) | payer MEDICARE, OTHER ==
[2023-05-16 11:49] LABS: BASOPHILS # (AUTO) 0.1 10^3/uL (0.0-0.1); BASOPHILS % (AUTO) 1.1 %; EOSINOPHILS # (AUTO) 0.1 10^3/uL (0.0-0.7); EOSINOPHILS % (AUTO) 2.9 %; HCT - HEMATOCRIT 47.7 % (42.0-52.0); HGB - HEMOGLOBIN 15.9 g/dL (14.0-18.0); LYMPHOCYTES % (AUTO) 23.1 %; MEAN CORPUSCULAR HGB CONC 33.3 g/dL (32.0-36.0); MEAN PLATELET VOLUME 10.1 fL (7.4-11.4); MONOCYTES # (AUTO) 0.5 10^3/uL (0.0-1.0); MONOCYTES % (AUTO) 11.7 %; NEUTROPHILS # (AUTO) 2.7 10^3/uL (1.5-6.6); PLT - PLATELET COUNT 207 10^3/uL (130-450); RED CELL DISTRIBUTION WIDTH 12.2 % (12.0-15.0); WHITE BLOOD COUNT 4.5 x10^3/uL (4.8-10.8)
[2023-05-16 12:13] LABS: CHOL/HDL RATIO 4.2 (<5.0); CHOLESTEROL 184 mg/dL; HDL CHOLESTEROL 44 mg/dL; LDL CHOLESTEROL,CALCULATED 112 mg/dL; LDL/HDL RATIO 2.5 (<3.6); MAGNESIUM 1.9 mg/dL (1.7-2.3); TRIGLYCERIDES 141 mg/dL (48-352); VLDL CHOLESTEROL 28 mg/dL
[2023-05-16 12:22] LABS: THYROID STIMULATING HORMONE 1.36 uIU/mL (0.34-5.60)
== END 2023-05-16 07:26 | disposition home or self-care (01) ==
LOC: LAB.N 07:25
PROVIDERS: ATTEND Nurse Practitioner Family
DX: Z00.00 Encounter for general adult medical examination without abnormal findings (principal); E78.5 Hyperlipidemia, unspecified; K22.70 Barrett's esophagus without dysplasia; N40.1 Benign prostatic hyperplasia with lower urinary tract symptoms; N13.8 Other obstructive and reflux uropathy; Z79.899 Other long term (current) drug therapy
CPT/HCPCS: 36415; 80061; 83721; 83735; 84153; 84443; 85025

== ENCOUNTER 2024-05-01 07:22 | Outpatient (CLI) | payer MEDICARE, OTHER ==
[2024-05-01 12:13] LABS: ESTIMATED AVERAGE GLUCOSE 108 mg/dL (70-100); HEMOGLOBIN A1c% 5.4 % (4.27-6.07)
[2024-05-01 12:39] LABS: ALBUMIN 4.4 g/dL (3.2-5.5); ALBUMIN/GLOBULIN RATIO 1.8 (1.0-2.2); BILIRUBIN,TOTAL 0.5 mg/dL (0.2-1.0); CALCIUM 9.4 mg/dL (8.5-10.3); CREATININE 0.9 mg/dL (0.6-1.3); POTASSIUM 4.5 mmol/L (3.5-4.5); TOTAL PROTEIN 6.9 g/dL (6.4-8.9)
== END 2024-05-01 07:23 | disposition home or self-care (01) ==
LOC: LAB.N 07:22
PROVIDERS: ATTEND Nurse Practitioner Family
DX: R73.01 Impaired fasting glucose (principal)
CPT/HCPCS: 36415; 80053; 83036